=== PATIENT | male | born 1960 | race Caucasian/White ===

== ENCOUNTER 2019-11-09 11:20 | Observation (INO) | payer OTHER ==
--- NOTE | 2019-11-09 11:51 | ED ---
Neurological HPI - HPI Summary HPI Summary: This patient is a 59 y/o male presenting to [facility] for difficulty remembering events. Patient reports his told him he fell and passed out 2 days ago on . Patient does not remembering falling or what happened that day. Patient went to a different hospital 2 days ago but is unable to remember his hospital stay. Patient does not remember most of yesterday and only remember checking some emails about work. He states the last thing he remembers prior to this was being told by his Jag[facility] was closed due to Coronavirus. Patient has not had anything to eat today except for 2 Mountain Dews and potato chips. He currently reports tail bone pain from his fall and a headache, which he reports it's due to not eating. Denies any numbness, tingling, weakness, visual changes , difficulty walking. called Dr. Simpson, his PCP, and patient was recommended to come to the ED. Patient admits to drinking 6 beers every day and states the last time he drank was "probably yesterday", however he does not remember. He reports smoking cigarettes. Denies any drug use. PMHx: testicular CA s/p tumor resection, "small" heart attack. NKDA. 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 Medications reviewed. Allergies noted. - History of Current Complaint Chief Complaint: EDNeurologicalDeficit Stated Complaint: RULE OUT STROKE PER Time Seen by Provider: 11/09/19 11:41 Hx Obtained From: Patient Onset/Duration: Started days ago, Still Present Current Severity: Moderate Pain Intensity: 5 - headache Pain Scale Used: 0-10 Numeric Character: Other: - difficulty remembering Aggravating: Nothing Alleviating: Nothing Associated Signs and Symptoms: Positive: Headache, Memory Loss, Pain - tail bone. Negative: Unsteady Gait, Numbness, Fever - Allergy/Home Medications Allergies/Adverse Reactions: Allergies Allergy/AdvReac Type Severity Reaction Status Date / Time No Known Allergies Allergy Verified 11/09/19 11:32 Home Medications: Home Medications Metoprolol Tartrate TAB* [Lopressor TAB*] 25 mg PO DAILY 11/23/15 [History Confirmed 11/09/19] Ramipril CAP* [Altace CAP*] 10 mg PO DAILY 11/23/15 [History Confirmed 11/09/19] Simvastatin [Zocor 40 MG (NF)] 80 mg PO QPM 11/23/15 [History Confirmed 11/09/19 ] Cefdinir [Cefdinir 300 MG CAP] 300 mg PO BID 11/09/19 [History Confirmed ] Sildenafil Citrate 100 mg PO DAILY PRN 11/09/19 [History Confirmed 11/09/19] PMH/Surg Hx/FS Hx/Imm Hx Endocrine/Hematology History: Denies: Hx Diabetes, Hx Thyroid Disease Cardiovascular History: Reports: Hx Hypertension, Hx Myocardial Infarction Respiratory History: Denies: Hx Asthma, Hx Chronic Obstructive Pulmonary Disease (COPD) GI History: Denies: Hx Ulcer - Cancer History Cancer Type, Location and Year: testicular - Surgical History Surgical History: Yes Surgery Procedure, Year, and Place: testicular cancer Infectious Disease History: No Infectious Disease History: Denies: Hx Clostridium Difficile, Hx Hepatitis, Hx Human Immunodeficiency Virus (HIV), Hx of Known/Suspected MRSA, Hx Shingles, Hx Tuberculosis, Hx Known/ Suspected VRE, Hx Known/Suspected VRSA, History Other Infectious Disease, Traveled Outside the [place] in Last 30 Days - Family History Known Family History: Positive: Cardiac Disease - Social History Occupation: Employed Full-time - electric vehicle electrician at [employer] Alcohol Use: Daily Alcohol Amount: pt states he has 6-8 beers a day Substance Use Type: Reports: None Hx Tobacco Use: Yes Smoking Status (MU): Current Every Day Smoker Type: Cigarettes Amount Used/How Often: 1 ppd Review of Systems Negative: Fever Musculoskeletal: Other - POSITIVE: tail bone pain Neurological/Mental Status: Other - POSITIVE: difficulty remembering, LOC. NEGATIVE: visual changes, difficulty walking Positive: Headache. Negative: Weakness, Paresthesia, Numbness All Other Systems Reviewed And Are Negative: Yes Physical Exam - Summary Physical Exam Summary: Constitutional: Well-developed, Well-nourished, Alert. (-) Distressed Skin: Warm, Dry HENT: Normocephalic; Atraumatic Eyes: Conjunctiva normal Neck: Musculoskeletal ROM normal neck. (-) JVD, (-) Stridor, (-) Tracheal deviation Cardio: Rhythm regular, rate normal, Heart sounds normal; Intact distal pulses. Radial pulses are 2+ and symmetric. (-) Murmur Pulmonary/Chest wall: Effort normal. (-) Respiratory distress, (-) Wheezes, (-) Rales Abd: Soft. (-) Tenderness, (-) Distension, (-) Guarding, (-) Rebound Musculoskeletal: (-) Edema Lymph: (-) Cervical adenopathy Neuro: Alert, Oriented x3, Strength normal, Cranial nerves II-XII are grossly intact. (-) Dysmetria, (-) Nystagmus, (-) Ataxia by finger to nose testing, (-) Sensory deficit. Patient can't remember month or year. Psych: Mood and affect Normal Triage Information Reviewed: Yes Vital Signs On Initial Exam: Initial Vitals Temp Pulse Resp BP Pulse Ox 97.8 F 93 16 182/93 99 11/09/19 11:22 11/09/19 11:22 11/09/19 11:22 11/09/19 11:22 11/09/19 11:22 Vital Signs Reviewed: Yes - Nehal Coma Scale Best Eye Response: 4 - Spontaneous Best Motor Response: 6 - Obeys Commands Best Verbal Response: 5 - Oriented Coma Scale Total: 15 Procedures - Sedation Patient Received Moderate/Deep Sedation with Procedure: No Diagnostics - Vital Signs Vital Signs Temp Pulse Resp BP Pulse Ox 11/09/19 11:22 97.8 F 93 16 182/93 99 - Laboratory Result Diagrams: 11/09/19 12:12 11/09/19 12:12 Lab Statement: Any lab studies that have been ordered have been reviewed, and results considered in the medical decision making process. - CT Brain CT CT Interpretation Completed By: Radiologist Summary of CT Findings: IMPRESSION: No acute intracranial pathology. Dr. Hinojosa has reviewed this report. Re-Evaluation - Re-Evaluation First Eval Re-Evaluation Time: 11:52 Comment: Patient's was called for further information. reports on Friday11/07/19 patient was cooking dinner and acting abnormal. Patient couldn't explain it. left the room and heard a thump, patient had fallen to the ground. states after the fall patient was slightly altered and not answering questions appropriately. Additionally patient had fecal incontinence and vomited. Patient was taken to [facility] and admitted overnight. Patient was discharged yesterday at noon and they thought patient had alcohol withdrawal. When saw the patient at 1500 yesterday and patient couldn't remember his hospital stay. Patient was prescribed Cefdinir for aspiration pneumonia. saw the patient had 1 beer last night. Course/Dx - Course Course Of Treatment: Patient is here with some short-term amnesia that started following an hospitalization that ended yesterday. Patient does have a history of alcohol addiction and drink one beer yesterday. Patient has a normal neurologic exam outside of he can't remember recent events, the month, the year. Patient a CT scan of his brain which was unremarkable. Patient had blood performed which was grossly unremarkable. Neurology was counseled to the recommended admission for MRI and EEG - Diagnoses Provider Diagnoses: Amnesia, Alcohol addiction - Physician Notifications Discussed Care Of Patient With: Cruzito Ceullo Time Discussed With Above Provider: 12:54 Instructed by Provider To: Other - Dr. Cuello, neurologist, will come see patient in the ED. [14:21] Dr. Cuello recommends admission to the hospitalist. [1425] Discussed patient care with Dr. Villarreal, hospitalist, who accepted the patient for admission. Discharge ED - Sign-Out/Discharge Documenting (check all that apply): Patient Departure - Admit to [facility] - Discharge Plan Condition: Stable Disposition: ADMITTED TO [facility] - Billing Disposition and Condition Condition: STABLE Disposition: Admitted to [facility] - Attestation Statements Document Initiated by Keyshae: Yes Documenting Scribe: Radha Granados Provider For Whom Blane is Documenting (Include Credential): Herminio Hinojosa MD Scribe Attestation: Radha Álvarez, scribed for Herminio Hinojosa MD on 11/09/19 at 1702. Scribe Documentation Reviewed: Yes Provider Attestation: The documentation as recorded by the Radha christine accurately reflects the service I personally performed and the decisions made by me, Herminio Hinojosa MD Status of Scribe Document: Viewed
[2019-11-09 12:24] LABS: ABS Basophils 0.1 10^3/ul (0-0.2); ABS Monocytes 0.5 10^3/ul (0-0.8); ABS Neutrophils 6.7 10^3/ul (1.5-7.7); Eosinophil % 0.5 %; Hematocrit 39 % (42-52); Hemoglobin 13.4 g/dL (14.0-18.0); Lymphocyte % 12.1 %; Mean Corpuscular HGB Conc 34 g/dL (31-36); Mean Corpuscular Hemoglobin 32 pg (27-31); Mean Corpuscular Volume 95 fL (80-94); Mean Platelet Volume 8.3 fL (7.4-10.4); Platelet Count 199 10^3/uL (150-450); Red Blood Count 4.13 10^6 /uL (4.18-5.48); Red Cell Distribution Width 13 % (10-15); White Blood Count 8.3 10^3/uL (3.5-10.8)
[2019-11-09 12:41] LABS: Albumin 4.3 g/dL (3.2-5.2); Albumin/Globulin Ratio 1.7 (1-3); BUN/Creatinine Ratio 10.3 (8-20); Calcium 9.6 mg/dL (8.6-10.3); EGFR African American 96.5 (>60); EGFR Non-African American 79.8 (>60); Globulin 2.6 g/dL (2-4); Potassium 3.7 mmol/L (3.5-5.0); Total Bilirubin 0.5 mg/dL (0.2-1.0); Total Protein 6.9 g/dL (6.4-8.9)
[2019-11-09] MEDS ORDERED: Thiamine INJ* 500 MG in NS 0.9% 250 ML* 250 ML IV ONE (12:55)
[2019-11-09 13:08] LABS: Urine Benzodiazepine Screen None Detected (None Detect); Urine Opiates Screen None Detected (None Detect)
[2019-11-09] MEDS ORDERED: NS 0.9% 1000 ML** 1,000 ML IV SCH (15:00)
[2019-11-09] MEDS ORDERED: Acetaminophen TAB* 325 MG PO PRN (15:02)
[2019-11-09] MEDS ORDERED: Ondansetron ODT TAB* 4 MG PO PRN (15:03)
[2019-11-09 15:20] LABS: Alcohol < 10 mg/dL (<10)
--- NOTE | 2019-11-09 16:51 | CONS ---
CONSULTATION REPORT: DATE OF CONSULT: 11/09/19. PATIENT OF: Dr. Herminio Hinojosa. HISTORY OF PRESENT ILLNESS: This is a 59-year-old man who presented with a several- day history. I spoke to him and his . His is a better historian than he is. Apparently, he was in his usual state of reasonable health, although he is an alcoholic. Then on Friday, his found him with his head between his hands and not feeling well. She then heard a thump and found him on the ground in the hallway. There was no shaking witnessed. He was pale and he had said he felt lightheaded. She kept him there for a while, but then he defecated and she helped him to the toilet seat. While on the toilet seat, he appeared sweaty, pale, and he slumped twice more on the toilet and she helped him off the toilet. He was brought into [facility] where he was observed for a day and then sent home yesterday. Today, he was acting confused and had difficulty remembering things according to his and so he came in. His memory apparently is somewhat better now than he was when he first came into the ER. He has no weakness, numbness, visual changes. He does have a headache and he describes it as mild and global and he dates it to when he fell at home. PAST MEDICAL HISTORY: There is a history of testicular cancer, status post resection and history of "a small heart attack." MEDICATIONS AT HOME: Include: 1. Sildenafil 100 mg daily p.r.n. 2. Cefdinir 300 b.i.d. 3. Zocor 80 mg daily. 4. Altace 10 mg daily. 5. Metoprolol 25 mg daily. ALLERGIES: He has no known allergies. FAMILY HISTORY: Significant for cardiac disease. SOCIAL HISTORY: He admits drinking 6 beers a day. He also smokes cigarettes. 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 He smokes 1 pack a day on an ongoing basis. REVIEW OF SYSTEMS: Negative in all 14 spheres other than the HPI. PHYSICAL EXAM: Blood pressure 170/94, pulse 95, temperature 97.8, respirations 16. NIH Stroke Scale at this point was 0, done at 1:30 p.m. He is alert and oriented with normal speech and comprehension. Cranial nerves II through XII were normal. Fundi showed positive red reflex bilaterally. Motor exam revealed normal tone, strength, coordination. Negative pronator drift. Negative leg drift. Sensation intact to light touch. Reflexes were 1 and equal. There was no tremor. No liver flap at this point. Chest: Clear. Cardiovascular: Regular rate and rhythm. Abdomen was soft with positive bowel sounds. DIAGNOSTIC STUDIES/LAB DATA: His CT scan was reviewed and was normal. Labs include normal CBC other than hematocrit of 39. Normal chemistries. B12 is low at 158. Toxicology was negative. IMPRESSION AND PLAN: Gregory's history is confusing. It sounds as best I can tell he had an episode of repeated syncope on Friday where he got lightheaded, sweaty, and went down and then when his brought him to the toilet, he had further slumping while he was sitting up; however, it is unclear what happened today with his confusional episode and how this relates to what happened before. With his known history of cancer, it is possible that he could be having seizures. It does not sound like a stroke, although it could have been a transient global amnesic episode that passed. We will be getting an MRI scan , EEG, and since the symptoms have changed and fluctuated and he was recently sent home, we will be admitting him for observation and to get these tests. Thank you for sharing his case. [id number]/[id number] #: [id number] [place]
[2019-11-09] MEDS: Enoxaparin(*) 40 MG/0.4 ML SYR SUBCUT SCH ×2 (16:54→16:55)
--- NOTE | 2019-11-09 17:49 | HP ---
HISTORY OF PRESENT ILLNESS: DATE OF ADMISSION: 11/09/19 PRIMARY CARE PROVIDER: Shae Simpson. CONTROLLER [employer] ORE: Amarilis Mortensen, the patient's . CODE STATUS: Full. CHIEF COMPLAINT: Acute memory loss. HISTORY OF PRESENT ILLNESS: A 59-year-old male with past medical history of tobacco use; alcohol use disorder with no documented withdrawal; hypertension; hyperlipidemia; obstructive sleep apnea, not compliant with CPAP; history of testicular tumor, grade 1 seminoma, status post resection and abdominal radiation in 2000; who is presenting after just being discharged from [facility] on 11/08/19 where he was admitted for syncope workup and is re- presenting to the hospital today for acute onset of memory loss of that hospitalization. The patient is a fair to poor historian and HPI was difficult to obtain from him. He cannot recall in detail the events over the last 3 days. He reports that he remembers Friday morning and his reports that on Friday evening he had an event where they were cooking dinner together and he was acting strangely and saying nonsensical things. He had had several beers at that point. She notes that he went upstairs shortly after this and she heard a thud, she found him passed out upstairs. She was able to get him up with voice and tactile stimulus, but found that he had urinated and defecated on himself. They presented to [facility] where he was admitted under observation. His blood alcohol level in the emergency room under [facility] was 112. He also had a CT cervical spine that was normal, CT brain that was normal, and a chest x-ray that had ?left lower lobe atelectasis coupled with a mild leukocytosis on labs, which were otherwise unremarkable. He was started on antibiotics, admitted under observation for possible alcohol withdrawal, and then discharged on 11/08/19 with a diagnosis of alcohol withdrawal versus vasovagal syncope versus alcohol use versus dehydration. The patient reports he returned home Friday morning and resumed his normal events. His notes that he did have 1 beer in the afternoon when on Friday, his reports that he did not recall being brought to the hospital or his stay there. This persistent amnesia continued until Friday this morning, where his again notes that when he woke up he had no recollection of presenting to, staying in, or going to the hospital. They called their primary care provider who suggested that they come to the hospital. The patient still endorses he does remember the events of today and Friday morning, but again has no recollection from Friday afternoon through all of Friday. He denies headache, vision changes, new weakness. His denied that there was slurring of speech or any other acute neurologic findings. In the emergency room, vital signs were stable with a blood pressure of systolic 180s initially, but then 165/89; temperature is 97.8; heart rate is 93 and sinus; respiratory rate 16; 99% on room air. Labs show macrocytosis and normal CMP and a normal tox with blood alcohol level pending at time of dictation. Imaging included a repeat CT brain that was negative. Neurology was consulted for this acute retrograde amnesia, who recommended observation with MRI and EEG. PAST MEDICAL HISTORY: Alcohol use disorder with 6 to 8 drinks per day, with no documented history of withdrawal or delirium tremens; tobacco use 1 pack per day for 40 years; hypertension; hyperlipidemia; obstructive sleep apnea, not compliant on CPAP; history of testicular cancer, status post orchiectomy and abdominal radiation in 2000. PAST SURGICAL HISTORY: Status post orchiectomy. MEDICATIONS: 1. Metoprolol succinate 25 mg p.o. daily. 2. Sildenafil citrate 100 mg p.o. p.r.n. for erectile dysfunction. 3. Ramipril 10 mg p.o. daily. 4. Simvastatin 80 mg p.o. q.p.m. 5. Of note, he had been discharged with cefdinir 300 mg p.o. b.i.d. from recent stay in [facility] where he had possible pneumonia. ALLERGIES: No known drug allergies. FAMILY HISTORY: His mother has breast cancer. His father has CAD and heart attack in his 50s. SOCIAL HISTORY: The patient is . 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 Tobacco is 1 pack per day for 40 years. Alcohol 6 to 8 units of alcohol per day. Illicit, he denies. REVIEW OF SYSTEMS: Constitutional: Negative for fevers, chills, or malaise. HEENT is negative for headaches, vision change, sore throat. Cardiovascular: Negative for chest pain, palpitations. Respiratory: Negative for shortness of breath, cough, pleuritic chest pain. GI: Negative for nausea, vomiting, diarrhea, abdominal pain. : Negative for dysuria, hematuria. Musculoskeletal: Negative for new weakness. Positive for pain to tailbone, which his said was part of his fall, but no other new myalgias or arthralgias. Skin: Negative for new rashes or lesions. Neurologic: Negative for focal weakness or numbness. Positive for acute onset memory loss. Psychiatric: Adamantly denies depression, anxiety, delusions, suicidal ideation , homicidal ideation, history of PTSD, or any psychosis. Endocrine: Negative for polyuria, polydipsia. Heme: Negative for easy bruising, bleeding, and lymphadenopathy. PHYSICAL EXAMINATION GENERAL APPEARANCE: Well-appearing gentleman, in no acute distress, sitting up in bed, awake, alert, and oriented and cooperative with my exam. VITAL SIGNS: At the time of physical exam, blood pressure 160/90, pulse rate 77 , respiratory rate 16, oxygen 98% on room air. HEENT: Pupils are equal and reactive. Extraocular muscles are intact. Sclerae are anicteric. Poor dentition with dry mucous membranes. NECK: Supple with no supraclavicular or cervical lymphadenopathy. RESPIRATORY: Lungs are clear to auscultation bilaterally. CARDIAC: Regular rate and rhythm with no murmurs, rubs, or gallops. ABDOMEN: Belly is soft, nontender, nondistended with normoactive bowel sounds. MUSCULOSKELETAL: He moves all 4 limbs spontaneously. EXTREMITIES: Warm and well perfused with no evidence of edema. NEUROLOGIC: His cranial nerves II through XII are intact. Motor: He has no pronator drift in outstretched arms. Muscle bulk and tone are normal. Strength is full bilaterally to upper extremities and lower extremities on all testing. Reflexes 2+ symmetric at the biceps, triceps, knees, and ankles. Plantar responses are flexor. Sensory to light touch, pinprick, position sense , and vibration sense are intact in finger and toes. Coordination: The patient has no dysmetria on [id number], [id number]. Gait is not observed. PSYCHIATRIC: Mini mental is performed and the patient is scored 30/30 with 3/3 recall and fully oriented. A and O x4 with full scores in attention and visual spatial. SKIN: There are no areas of rashes, breakdown, or new lesions. DIAGNOSTIC STUDIES/LAB DATA: White blood cell count 8.3, hemoglobin 13.4, hematocrit 39, platelets 199. Sodium 137, potassium 3.7, chloride 103, carbon dioxide 26, anion gap 8, BUN 10, creatinine 0.97, glucose 138. AST 22, ALT 48, alkaline phosphatase is 61. B12 pending. Serum alcohol pending. U-tox negative. Imaging includes CT brain noncon, which shows no acute cranial pathology. Chest x-ray from [facility] was reviewed that shows ?left atelectasis, but no focal opacification. CT cervical spine was also obtained from [facility] which showed no acute fracture. CONSULTANTS DURING THE EMERGENCY ROOM VISIT: Dr. Cuello from Neurology. ASSESSMENT AND PLAN: A 59-year-old male with past medical history of tobacco use disorder; alcohol use disorder with no documented withdrawal; hypertension; hyperlipidemia; obstructive sleep apnea, noncompliant on CPAP; and history of testicular cancer, status post resection and radiation in 2000, in full remission; who is presenting with acute onset of retrograde amnesia to the events 48 hours prior to this presentation at [facility]. He had what sounds like a syncopal event, although the patient and family also described that he was incontinent of bladder and bowel. The differential for acute retrograde amnesia coupled with the syncopal event is possible for an ischemic event, substance related from his report of alcohol use; seizure disorder; or less likely pure transient global amnesia from a nonischemic event. He will be admitted to [address] [place] [address] for observation, neuro checks, and continued followup with Neurology to ensure there was no acute stroke. 1. Retrograde amnesia. EEG and MRI are ordered. Neuro checks to be done q.8. Monitor on telemetry. 2. Reported syncope. The patient of note did not get an echocardiogram at [place]. We will look for neuro recommendations to see if this is beneficial pending the result of the MRI. We will continue to monitor on telemetry. We will give 1 L normal saline for possible dehydration. 3. Hypertension. We will continue home TERRI inhibitor and metoprolol. 4. Obstructive sleep apnea. The patient is noncompliant on CPAP. 5. Alcohol use disorder. Reports last drink was yesterday afternoon according to his which was 1 beer, blood alcohol level is pending. He has no signs of acute withdrawal on exam. We will place on [facility] protocol without p.r.n. just for scores. 6. Hyperlipidemia. Continue statin. 7. DVT prophylaxis. Start the patient on Lovenox. 8. Code status is full. Consultants are Neurology. 9. Disposition stable to be admitted under observation to [address] [place] [address] for neuro checks, telemetry, and continued neuro workup. Diet is unrestricted. Disposition stable to home when stroke and seizures have been eliminated as causes of this possible amnesia. TIME SPENT: Sixty minutes was spent in the planning of this admission with over half of that spent directly at the bedside patient providing direct patient care. Plan of care is discussed with the patient and his family, and they have no further questions. [id number]/[facility] #: [id number] [place]
[2019-11-09] MEDS ORDERED: Cyanocobalamin INJ * 1,000 MCG/ML VIAL 1 ML VIAL IM SCH (18:00)
[2019-11-09] MEDS ORDERED: Atorvastatin* 40 MG TAB PO SCH (18:00)
--- NOTE | 2019-11-09 18:47 | EEG ---
ELECTROENCEPHALOGRAPHY: DATE OF STUDY: 11/09/19. PATIENT OF: Dr. Shannan Villarreal. CLINICAL PROBLEM: This is a 59-year-old man being evaluated for recent episodes of probable syncope, but more recently an episode of unexplained confusion occurring today. MEDICATIONS: Include: 1. Theragran. 2. Altace. 3. Thiamine. 4. Vitamin B. 5. Metoprolol. 6. Lovenox. 7. Lipitor. 8. Folic acid. REPORT: With the patient awake, background cerebral activity consists of moderate amplitude posterior dominant 9 Hz rhythm. There is some electrode artifact noted throughout, but in addition there appears to be sharp waves appearing independently out of the right temporal head region that appear more prominent than the baseline artifacts and are suspicious for epileptiform discharges. The patient never falls asleep. No activation procedures are performed. CLINICAL IMPRESSION: This awake EEG shows rare right temporal waves that are sharply contoured and appear more prominent than some of the electrode artifact that is also noted and are suspicious for a tendency towards focal seizures. Clinical correlation is recommended. [id number] #: [id number] [facility] HOSPITALKarina
[2019-11-10 06:37] LABS: BUN/Creatinine Ratio 9.7 (8-20); EGFR African American 90.1 (>60); EGFR Non-African American 74.4 (>60); Potassium 3.8 mmol/L (3.5-5.0)
[2019-11-10 07:49] VITALS: BP 132/68
[2019-11-10] MEDS ORDERED: levETIRAcetam 1000MG IVPREMIX* 1,000 MG/100 ML BAG IVPB ONE (08:30)
[2019-11-10] MEDS ORDERED: Thiamine TAB* 100 MG TAB PO SCH (09:00)
[2019-11-10] MEDS ORDERED: Folic Acid TAB* 1 MG PO SCH (09:00)
[2019-11-10] MEDS ORDERED: Multivitamins/Minerals TAB PO SCH (09:00)
[2019-11-10] MEDS ORDERED: Ramipril CAP* 10 MG PO SCH (09:00)
[2019-11-10] MEDS ORDERED: Metoprolol Succinate XL TAB* 25 MG PO SCH (09:00)
--- NOTE | 2019-11-10 17:26 | PN ---
NEUROLOGICAL FOLLOWUP NOTE: DATE OF SERVICE: 11/10/19. HISTORY: He had no withdrawal symptoms overnight. He has had no further confusion or memory problems or any other symptoms. No numbness or weakness. He has no headache. MEDICATIONS: Include: 1. B12 1000 mcg orally a day. 2. Folic acid. 3. Keppra 750 twice a day. 4. Metoprolol 25 mg every day. 5. Multivitamins. 6. Thiamine. PHYSICAL EXAMINATION: He was alert and oriented with normal speech and comprehension. Cranial nerves II through XII were intact. Motor exam revealed normal tone. No pronator drift. Strength was 5/5. Chest: Clear. Cardiovascular: Regular rate and rhythm. DIAGNOSTIC STUDIES/LAB DATA: His MRI scan showed some mild atrophy, but no strokes or focal abnormalities. His EEG showed some occasional right temporal sharp waves. His labs as mentioned yesterday is significant for a low B12. Toxicology was negative. IMPRESSION AND PLAN: I discussed with his hospitalist and with Gregory that it is possible that the episode that brought him to the hospital which was a confusional episode may have either been a seizure or postictal state following a seizure. EEG was suspicious that he has a tendency towards seizures. It is possible that this was an alcohol withdrawal seizure, but he had no symptoms of alcohol withdrawal, so we are putting him on Keppra now 750 twice a day and I discussed side effects with him including depression or moodiness. I should see him back in the office or by televideo within the next month or a month and a half. He will call me for problems in the interim. Thank you for sharing his case. [id number]/[facility] #: [id number] [place]
--- NOTE | 2019-11-10 18:48 | DS ---
CC: Dr. Shae Simpson; Dr. Cuello* DISCHARGE SUMMARY: DATE OF ADMISSION: 11/09/19 DATE OF DISCHARGE: 11/10/19 PRIMARY CARE PHYSICIAN: Dr. Shae Simpson. PRIMARY DIAGNOSES: 1. Possible seizure disorder. 2. Alcohol use disorder. 3. Vitamin B12 deficiency. SECONDARY DIAGNOSES: 1. Tobacco use disorder. 2. Hypertension. 3. Obstructive sleep apnea, not on CPAP. CONSULTATION: Dr. Cuello of Neurology. DISCHARGE MEDICATIONS: 1. Keppra 750 mg twice a day. 2. Ramipril 10 mg daily. 3. Metoprolol succinate 25 mg daily. 4. Simvastatin 40 mg daily. 5. Thiamine 100 mg daily. 6. Vitamin B12 1000 mcg daily. 7. Folic acid 1 mg daily. 8. Multivitamin 1 tab daily. 9. Sildenafil 100 mg daily as needed for ED. HISTORY OF PRESENT ILLNESS: Mr. Mortensen is a 59-year-old man with alcohol use disorder; tobacco use disorder; hypertension; GARCIA, not on CPAP; and history of testicular cancer, grade 1 seminoma, status post resection, abdominal radiation in 2000, who presents 1 day after discharge from [facility] where he was admitted for syncope workup. The patient is presenting to the hospital today after acute onset of memory loss of that hospitalization. He is a fair to poor historian and HPI is difficult to obtain from him. He cannot recall in detail events over the last 3 days. He remembers a few days ago in the evening he and his were cooking together and he began acting strangely and saying nonsensical things. At that point, he had already had several beers during the day. The notes that the patient went upstairs shortly after this and she heard a thud, she found him passed out. She was able to get him up with voice and tactile stimulus, but she found that he had urinated and defecated on himself. They presented to [facility] where he was admitted under observation. The patient's blood alcohol level in the emergency room was 112. He had a CT C-spine that was normal and a CT brain that was normal. Chest x-ray was concerning for a possible left lower lobe atelectasis. Given that the patient had mild leukocytosis on his labs, he was started on antibiotics. He was admitted under observation for possible alcohol withdrawal and discharged 1 day prior to this presentation with a diagnosis of alcohol withdrawal versus vasovagal syncope versus alcohol intoxication versus dehydration. The patient's reports that he did not recall being brought to the hospital after his discharge and he does not remember anything about his admission. The persistent amnesia continued until the morning of presentation when his again notes that he woke up and had no recollection of his recent hospitalization, so they called their primary care provider who suggested they come to the hospital. The patient reports remembering events from today and yesterday, but again does not remember the hospital discharge. He denies headache, visual changes, weakness. His denied that there was slurring of speech or any other acute neurologic findings. HOSPITAL COURSE: In the emergency room, the patient initially had systolic blood pressures in the 180, but on repeat his blood pressures decreased closer to normal range and his vitals were otherwise unremarkable. His labs show macrocytosis with a normal CMP and a serum alcohol less than 10. Repeat brain CT was performed and was unremarkable, and the patient was asked to be admitted under observation for neurological evaluation with MRI and EEG. The patient was monitored with neuro checks and WAM protocol and his score consistently was 0. His other home medications were continued as before. An EEG done on the day of admission was significant for rare right temporal waves that are sharply contoured and appear more prominent than some of the electrode artifact that is also noted and are suspicious for tendency towards focal seizures, clinical correlation was recommended. A brain MRI was also performed and showed no acute intracranial abnormality with mild atrophy. Dr. Cuello of Neurology recommended Keppra loading the patient in case his episode prior to [facility] was due to a new onset of focal seizures. It was recommended that the patient avoid alcohol and he was discharged with close Neurology followup. PHYSICAL EXAMINATION: Afebrile, blood pressure 132/68, respiratory rate 16, oxygen saturation 99% on room air, heart rate 74. In general, he is a well- appearing man, in no acute distress, who is alert, interactive, friendly, and conversant. Neck: No JVD. Supple. Heart: Regular rate and rhythm. No murmurs, gallops, or rubs. Lungs: Clear to auscultation bilaterally. Abdomen: Soft, nontender, nondistended. Extremities: Warm and well perfused without evidence of edema. Neuro Exam: A and O x3. Cranial nerves II through XII intact. No asterixis. No pronator drift. Sensation intact to light touch in all 4 extremities. Strength 5/5 in all 4 extremities. DIAGNOSTIC STUDIES/LAB DATA: CT brain without contrast without acute intracranial pathology. Brain MRI without contrast with no acute intracranial abnormality, mild atrophy , paranasal sinus disease is possibly noted. EEG as above. CBC notable for macrocytic anemia 13.4 with MCV 95. BMP and LFTs unremarkable. Vitamin B12 158, which is low. Troponin 0. U-tox negative with serum alcohol less than 10. DISCHARGE PLAN: The patient will be discharged back home with close Neurology followup. The most significant changes to his home medications are the addition of Keppra 750 mg twice a day, to be determined when to stop this medication by outpatient neurologist. He was also initiated on high-dose supplemental vitamin B12 for deficiency noted while admitted. He did receive 1 intramuscular injection of B12 while here. He was strongly encouraged to consider alcohol cessation efforts given the relationship with seizures. He has appointment with Dr. Cruzito Cuello in 4 to 5 weeks from discharge. The patient was given return precautions, which include but are not limited to recurrence of altered mental status or incontinence. DIET: Healthy diet, low in processed foods; avoid alcohol. ACTIVITY: As tolerated. DISPOSITION: To home. CONDITION: Improved. TIME SPENT: Approximately 60 minutes was spent on discharge of this patient, more than half of which was spent with care coordination at bedside for interview and exam. [id number]/[facility] #: [id number] [place]
[2019-11-10] MEDS ORDERED: levETIRAcetam TAB* 500 MG PO SCH (21:00)
== END 2019-11-10 12:10 | disposition home or self-care (01) ==
LOC: ED 11:20 → MEDTELE 14:59
PROVIDERS: ADMIT Internal Medicine; ATTEND Internal Medicine
DX: F10.10 Alcohol abuse, uncomplicated (principal); E53.8 Deficiency of other specified B group vitamins; F17.210 Nicotine dependence, cigarettes, uncomplicated; I10 Essential (primary) hypertension; I25.2 Old myocardial infarction; G47.33 Obstructive sleep apnea (adult) (pediatric); R51 Headache; R41.3 Other amnesia; Z85.47 Personal history of malignant neoplasm of testis; Z79.899 Other long term (current) drug therapy
CPT/HCPCS: 36415; 70450; 70551; 80048; 80053; 80307; 80320; 82607; 84484; 85025; 95816; 96365; 96367; 96372; 99284; A9270-GY; G0378; G0480; J1650; J1953; J3411; J3420